=== PATIENT | female | born 1945 | race Two or more races ===

== ENCOUNTER 2024-06-26 10:39 | Inpatient (IN) | payer MEDICARE, MEDICAID, SELFPAY ==
[2024-06-26] VITALS (12 sets, daily range): BP systolic 111–179; BP diastolic 60–91; PULSE 55–167; RESP 14–96; TEMP 36.4–37.1; O2SAT 94–97; BMI 24.3
--- NOTE | 2024-06-26 11:24 | EKG_ITS ---
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
--- NOTE | 2024-06-26 11:25 | PD.EDRME ---
Rapid Medical Screening Exam RME Arrival date/time: 06/26/24 10:39 79-year-old female presents emergency department complaining of chest pain and bodyaches. Chief Complaint: Chest Pain Time Seen by Provider: 06/26/24 11:16 Vital signs: Vital Signs Temperature 98.6 F 06/26/24 11:19 Pulse Rate 160 H 06/26/24 11:19 Respiratory Rate 19 06/26/24 11:19 Blood Pressure 150/91 H 06/26/24 11:19 Pulse Oximetry (%) 94 L 06/26/24 11:19 Oxygen Delivery Method Room Air 06/26/24 11:19 Vital signs reviewed by provider: Yes
--- NOTE | 2024-06-26 11:44 | EKG_ITS ---
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
--- NOTE | 2024-06-26 11:48 | PD.EDADULT ---
ED General RME/HPI General Chief complaint: Chest Pain Stated complaint: BODYACHE, CHEST PAIN, ANXIETY Time Seen by Provider: 06/26/24 11:16 Arrival date/time: 06/26/24 10:39 CC: Chest pain/chest pressure HPI onset 11 PM last night. Patient has a history of diabetes hypertension hyperlipidemia. Patient denies fever cough shortness of breath or difficulty breathing. Currently chest pain is a 6 on a 10 scale. 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 RME / HPI RME / HPI narrative: 06/26/24 10:39 79-year-old female presents emergency department complaining of chest pain and bodyaches. Related Data Allergies Allergy/AdvReac Type Severity Reaction Status Date / Time No Known Allergies Allergy Verified 06/26/24 10:45 Past Medical History Social History SMOKING STATUS: Never smoker ED Exam Narrative Physical exam: [General: Petite, not emaciated. Not in any acute distress Head normocephalic HEENT: Within acceptable limits Neck is supple nontender Chest equal chest rise nontender to palpation Respiratory: Clear to auscultation no wheezes crackles or rubs CV: Rate rhythm is irregular, accelerated, no murmurs rubs or clicks Abdomen is soft nontender no masses positive bowel sounds all 4 quadrants Back: No CVA tenderness no spinous process tenderness from cervical spine thoracic and lumbar spine Skin: Intact no petechiae rash induration ulceration or crepitus Extremities: Moving all extremity against resistance cap refill less than 2 seconds neurosensory intact Neuro: Awake alert oriented x3 Glascow coma 15 no focal deficits] Course Course Course Narrative: Reassessment of this patient 1217 heart rate is down to 99 patient states chest pain is a 1 to a 2 on a 10 scale if she is sitting upright nontoxic-appearing speaking with her son at bedside. Quality Measures none Orders Category Date Time Status EKG (ED ONLY) *Do not use* NOW Care 06/26/24 11:24 Completed EKG (ED ONLY) *Do not use* NOW Care 06/26/24 11:44 Completed EKG (ED ONLY) *Do not use* NOW Care 06/26/24 11:59 Completed EKG (ED ONLY) *Do not use* NOW Care 06/26/24 13:33 Completed EKG (ED Only) Stat Exams 06/26/24 11:24 Draft EKG (ED Only) Stat Exams 12/29/24 11:44 Draft EKG (ED Only) Stat Exams 06/26/24 11:59 Ordered EKG (ED Only) Stat Exams 06/26/24 13:33 Ordered XR chest 1V portable Stat Exams 06/26/24 12:02 Completed B-Type Natriuretic Peptide Stat Lab 06/26/24 11:49 Completed CBC Stat Lab 06/26/24 11:49 Completed Comprehensive Metabolic Panel Stat Lab 06/26/24 11:49 Completed Magnesium Stat Lab 06/26/24 11:49 Completed Partial Thromboplastin Time Stat Lab 06/26/24 11:49 Completed Prothrombin Time with INR Stat Lab 06/26/24 11:49 Completed Troponin I Stat Lab 06/26/24 11:49 Completed Troponin I Stat Lab 06/26/24 14:42 Ordered Troponin I Stat Lab 06/26/24 14:44 Ordered Urinalysis Stat Lab 06/26/24 11:24 Ordered Dextrose 5%-Water [D5w] 100 ml Med 06/26/24 13:04 Discontinued Diltiazem Inj [Cardizem Inj] 125 mg IV 5 mg/hr Diltiazem Inj [Cardizem Inj] Med 06/26/24 11:47 Discontinued 20 mg IV X1 ONE Sodium Chloride 0.9% 1000 ml [Ns] 1,000 ml Med 06/26/24 11:49 Discontinued IV 999 mls/hr Vital Signs Vital signs: Vital Signs Temperature 98.6 F 06/26/24 11:19 Pulse Rate 160 H 06/26/24 11:19 Respiratory Rate 19 06/26/24 11:19 Blood Pressure 150/91 H 06/26/24 11:19 Pulse Oximetry (%) 94 L 06/26/24 11:19 Oxygen Delivery Method Room Air 06/26/24 11:19 [facility] Patient data External records reviewed:: [facility] previous records Clinical information provided by:: patient Social determinants that could affect healthcare access:: none Patient has the following chronic illnesses:: Diabetes hypertension hyperlipidemia How is presenting disease/condition affected by chronic disease/condition?: uneffected by Evaluation data The following diagnostics were reviewed and interpreted by me:: lab results, radiology exam(s) and EKG tracing(s) Lab and/or radiology exams considered but not ordered:: EKG performed at 1132 shows a ventricular to 155 QRS of 85 QTc of 395 A-fib versus a flutter Repeat EKG at 1145 shows ventricular to 129 QRS of 79 QTc of 379 A-fib versus a flutter. With a pause. Repeat EKG after diltiazem at 1204 shows a ventricular rate of 65 QRS of 96 QTc of 418 A-fib with controlled rate. Repeat EKG performed at 1342 shows ventricular rate of 5 9 LA interval 161 QRS 81 QTc 445 sinus bradycardia. CBC shows no acute leukocytosis anemia thrombocytopenia CMP shows mildly elevated glucose level no other significant electrolyte imbalances renal impairment transaminitis or T. bili elevation initial troponin is negative BNP is negative Urine is negative Interpretation Summary: Patient's case discussed at length with Dr. Eyad Castillo for Dr. Varghese attending, Dr. 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 Crain who agrees to consult on the patient for cardiology patient will be admitted. Medications Medications considered but not ordered:: None Medication administrations:: Medication Administration History Discontinued Medications Diltiazem HCl (Diltiazem Inj 5 Mg/Ml Vial 5 Ml) 20 mg IV X1 ONE Stop: 06/26/24 11:48 Last Admin: 06/26/24 11:51 Dose: 20 mg Documented By: CARLEEN Sodium Chloride (Ns) 1,000 mls @ 999 mls/hr IV .Q1H1M ONE Stop: 06/26/24 12:49 Last Infusion: 06/26/24 14:03 Dose: Infused Documented By: Admin: 06/26/24 11:52 Dose: 999 mls/hr Documented By: CARLEEN Diltiazem HCl 125 mg/ Dextrose 125 mls @ 5 mls/hr IV .Q24H [facility]; Protocol Stop: 07/26/24 13:03 Last Admin: 06/26/24 14:31 Dose: Not Given Documented By: CARLEEN Non-Admin Reason: Discontinued None Consultations Consultation(s) initiated? (list below): Yes Consultation #1 (Physician, Specialty, Details): Ready Time: 14:57 Diagnosis Differential Diagnosis ED Complaint MDM: A-fib RVR a flutter ACS IA Most likely diagnosis given after review of the tests above:: A-fib with RVR Admission Indicated Admission indicated?: indicated Explain why admission is indicated or not indicated:: Quires further medical management Admission Request Was there a request for admission?: No Disposition Plan Disposition Plan: Admit Medical Decision Making Differential Diagnosis Differential Diagnosis: A-fib RVR a flutter ACS IA Lab Data 06/26/24 11:49 06/26/24 11:49 Labs: Lab Results 06/26/24 Range/Units 11:49 WBC 10.1 (3.6-11.0) Thou/mm3 RBC 6.35 H (4.00-5.20) Miln/mm3 Hgb 15.2 (12.0-16.0) g/dL Hct 46.7 H (36.0-46.0) % MCV 74 L (80-100) fL MCH 23.9 L (25.0-35.0) pg MCHC 32.5 (31.0-37.0) g/dl RDW Std Deviation 39.9 (36.4-46.3) fL Plt Count 354 (140-440) Thou/mm3 Neut % (Auto) 64 (37-80) % Lymph % (Auto) 26 (10-50) % Yancey % (Auto) 8 (0-12) % Eos % (Auto) 1 (0-10) % Baso % (Auto) 1 (0-2.5) % Neut # (Auto) 6.5 (1.8-7.7) Thou/mm3 Lymph # (Auto) 2.7 (1.0-4.8) Thou/mm3 [place]y # (Auto) 0.8 (0.0-0.8) Thou/mm3 Eos # (Auto) 0.1 (0.0-0.5) Thou/mm3 Baso # (Auto) 0.1 (0.0-0.2) Thou/mm3 Immature Gran # (Auto) 0.04 H (0.00-0.00) Thou/mm3 Absolute Nucleated RBC 0.00 (0.00-0.00) Thou/mm3 Immature Gran % 0 (0-0) % Nucleated RBC % 0 (0) /100 WBC PT 10.9 (9.0-12.2) Seconds INR 1.0 (0.9-1.3) APTT 26.0 (22.0-36.0) Seconds Sodium 136 (136-145) mMol/L Potassium 3.4 (3.4-5.1) mMol/L Chloride 99 (98-107) mMol/L Carbon Dioxide 25.2 (20.0-31.0) mMol/L Anion Gap 12 (7-16) BUN 14 (9-23) mg/dL Creatinine 0.7 (0.6-1.3) mg/dL Estim Creat Clear Calc Not Performed. eGFR > 60 (60 - ) See Note BUN/Creatinine Ratio 20 (12-20) Ratio Glucose 209 H (74-106) mg/dL Calculated Osmolality 278 (275-295) Calcium 10.0 (8.3-10.6) mg/dL Corrected Calcium 10.0 (8.5-10.1) mg/dL Magnesium 2.1 (1.6-2.6) mg/dL Total Bilirubin 1.2 (0.3-1.2) mg/dL AST 21 (0-34) U/L ALT 16 (10-49) U/L Alkaline Phosphatase 129 H (46-116) U/L Troponin I < 0.020 (0.0-0.045) ng/mL B-Natriuretic Peptide 155 H (0-100) pg/mL Total Protein 8.5 H (5.7-8.2) gm/dL Albumin 5.2 H (3.4-4.8) gm/dL Globulin 3.3 (2.3-3.5) gm/dL Albumin/Globulin Ratio 1.6 (1.2-2.2) Discharge Plan Plan Patient Disposition: Other Care w/in Hosp ([facility]) Patient condition on transfer: Stable Prescriptions/Referrals Referrals: Uriel Iqbal [Primary Care Provider] - In 1 week Problem List Clinical Impression: Chest pain, Atrial fibrillation with RVR Patient/Caregiver Discharge Instructions Print Language: Sami Stand Alone Forms: M[facility]enna Award Info., Patient Portal Info Letter ALEXANDER/TANISHA Supervising Physician ALEXANDER/TANISHA Supervising Physician: Diego Rosado ENP
[2024-06-26] MEDS: DILTIAZEM INJ 5 MG/ML VIAL 5 ML 20 MG IV (11:51)
[2024-06-26] MEDS: SODIUM CHLORIDE 0.9% 1000 ML 1,000 ML 999 ML IV (11:52)
--- NOTE | 2024-06-26 12:02 | XR_ITS ---
Examination: AP chest single view Technique: AP upright portable chest single view Exam date and time: June 26, 2024 1206 hrs. Comparison October 16, 2008 Indications: Shortness of breath today. Findings: Mild prominence of ventricle No pneumonia or pulmonary edema Moderate osteopenia Impression: No pneumonia or pulmonary edema
[2024-06-26 12:22] LABS: Prothrombin Time 10.9 Seconds (9.0-12.2)
[2024-06-26 12:24] LABS: Basophils # (Auto) 0.1 Thou/mm3 (0.0-0.2); Basophils % (Auto) 1 % (0-2.5); Eosinophils # (Auto) 0.1 Thou/mm3 (0.0-0.5); Eosinophils % (Auto) 1 % (0-10); Hematocrit 46.7 % (36.0-46.0); Hemoglobin 15.2 g/dL (12.0-16.0); Immature Granulocytes % (Auto) 0 % (0-0); Immature Granulocytes Auto 0.04 Thou/mm3 (0.00-0.00); Lymphocytes # (Auto) 2.7 Thou/mm3 (1.0-4.8); Lymphocytes % (Auto) 26 % (10-50); Mean Corpuscular HGB Conc 32.5 g/dl (31.0-37.0); Mean Corpuscular Hemoglobin 23.9 pg (25.0-35.0); Mean Corpuscular Volume 74 fL (80-100); Monocytes # (Auto) 0.8 Thou/mm3 (0.0-0.8); Monocytes % (Auto) 8 % (0-12); Neutrophils # (Auto) 6.5 Thou/mm3 (1.8-7.7); Neutrophils % (Auto) 64 % (37-80); Nucleated Red Blood Cell % 0 /100 WBC (0); Platelet Count 354 Thou/mm3 (140-440); RDW Standard Deviation 39.9 fL (36.4-46.3); Red Blood Count 6.35 Miln/mm3 (4.00-5.20); White Blood Count 10.1 Thou/mm3 (3.6-11.0)
[2024-06-26 12:26] LABS: Alanine Aminotransferase 16 U/L (10-49); Albumin, Serum 5.2 gm/dL (3.4-4.8); Albumin/Globulin Ratio 1.6 (1.2-2.2); Alkaline Phosphatase 129 U/L (46-116); Anion Gap 12 (7-16); Aspartate Amino Transferase 21 U/L (0-34); BUN/Creatinine Ratio 20 Ratio (12-20); Bilirubin,Total 1.2 mg/dL (0.3-1.2); Blood Urea Nitrogen 14 mg/dL (9-23); Carbon Dioxide 25.2 mMol/L (20.0-31.0); Chloride 99 mMol/L (98-107); Creatinine (Component) 0.7 mg/dL (0.6-1.3); Globulin 3.3 gm/dL (2.3-3.5); Glucose 209 mg/dL (74-106); Magnesium 2.1 mg/dL (1.6-2.6); Osmolality,Calculated 278 (275-295); Potassium 3.4 mMol/L (3.4-5.1); Sodium 136 mMol/L (136-145); Total Protein 8.5 gm/dL (5.7-8.2); Troponin I < 0.020 ng/mL (0.0-0.045); eGFR > 60 See Note
[2024-06-26 12:59] LABS: B-Type Natriuretic Peptide 155 pg/mL (0-100)
[2024-06-26 15:08] LABS: Collection Type, Urine Clean Catch
--- NOTE | 2024-06-26 15:12 | ECHO_ITS ---
Transthoracic Echo Report Ht (in): 60 Wt (lb): 155 Exam Location: Portable Status: Emergency Long Winder Tender: Zoey Royal Indications: Procedure Performed: BP: 153 / 74 HR: 58 Rhythm: Bradycardia Technical Quality: Fair MEASUREMENTS (Male / Female) Normal Values 2D ECHO LV Diastolic Diameter PLAX 4.8 cm 4.2 - 5.9 / 3.9 - 5.3 cm LV Systolic Diameter PLAX 3.1 cm IVS Diastolic Thickness 1.0 cm 0.6 - 1.0 / 0.6 - 0.9 cm LVPW Diastolic Thickness 0.9 cm 0.6 - 1.0 / 0.6 - 0.9 cm LV Relative Wall Thickness 0.4 LVOT Diameter 1.7 cm LA Volume Index 36.4 cm?/m? 16 - 28 cm?/m? Ascending Aorta Diameter 3.3 cm M-MODE Aortic Root Diameter MM 2.7 cm LA Systolic Diameter MM 3.6 cm LA Ao Ratio MM 1.3 AV Cusp Separation MM 1.9 cm DOPPLER AV Peak Velocity 177.0 cm/s AV Peak Gradient 12.5 mmHg AV Mean Gradient 7.0 mmHg AV Velocity Time Integral 41.2 cm AI Peak Velocity 478.0 cm/s AI Peak Gradient 91.4 mmHg AI Pressure Half Time 502.5 ms LVOT Peak Velocity 104.0 cm/s LVOT Peak Gradient 4.3 mmHg LVOT Velocity Time Integral 25.1 cm LVOT Cardiac Index 1885.7 cm?/min?m? AV Area Cont Eq vti 1.4 cm? AV Area Cont Eq pk 1.3 cm? MV Peak Velocity 122.0 cm/s MV Peak Gradient 6.0 mmHg MV Mean Velocity 56.6 cm/s MV Mean Gradient 2.0 mmHg MV Area PHT 2.4 cm? Mitral E Point Velocity 82.0 cm/s Mitral A Point Velocity 111.0 cm/s Mitral E to A Ratio 0.7 LV E' Lateral Velocity 5.1 cm/s Mitral E to LV E' Lateral Ratio 16.0 LV E' Septal Velocity 3.5 cm/s Mitral E to LV E' Septal Ratio 23.6 TR Peak Velocity 217.7 cm/s TR Peak Gradient 19.0 mmHg FINDINGS Left Ventricle Normal left ventricular size, wall thickness, systolic function with no obvious regional wall motion abnormalities. The ejection fraction is visually estimated at 60-65%. Right Ventricle The right ventricle is normal in size and systolic function. The estimated right ventricular systoli c pressure, 32mmHg. RAP 5. Left Atrium The left atrium is mildly dilated. Right Atrium The right atrium is normal by two-dimensional imaging, color flow and Doppler imaging with no struct ural abnormalities, no thrombus formation present. Atrial Septum The interatrial septum appears normal with no evidence of a shunt. Aorta The aorta is normal by two-dimensional, color flow and Doppler interrogation. Mitral Valve The mitral valve is mildly MAC. There is mild mitral valve regurgitation. Aortic Valve The aortic valve is trileaflet. Mild sclerosis without stenosis. There is moderate aortic valve reg urgitation. Tricuspid Valve The tricuspid valve is normal by two-dimensional, color flow and Doppler interrogation. There is mil d tricuspid valve regurgitation. Pulmonic Valve There is trace pulmonic valve regurgitation. Vessels The pulmonary artery appears normal. The inferior vena cava pulmonary and hepatic veins appear alanna l. Pericardium The pericardium is normal by two-dimensional imaging. There is no significant pericardial effusion. CONCLUSIONS Normal LV size and function. Estimated EF 60-65% Normal RV size and function. Mild LA dilatation Mild MAC with Mild MR Mild TR normal PA pressure Mild AV sclerosis without stenosis with mild aortic regurgitation. Lauren Meyers (Electronically Signed) Final Date: 28 June 2024 14:09
[2024-06-26] MEDS: PANTOPRAZOLE INJ 40 MG VIAL IVP (15:20)
[2024-06-26] MEDS: INSULIN LISPRO (AdmeLOG) 1 UNIT/0.01 ML UNIT SC ×2 (15:20→21:20)
[2024-06-26 15:27] LABS: Bacteria,Urine Rare; Bilirubin,Urine Negative (Negative); Blood,Urine Negative (Negative); Clarity,Urine Clear (Clear/Hazy); Glucose, Urine Negative (Negative); Ketones,Urine Negative (Negative); Leukocyte Esterase,Urine Negative (Negative); Nitrite,Urine Negative (Negative); Protein,Urine Negative (Neg - Trace); RBC,Urine 1 /hpf (0-3); Specific Gravity,Urine 1.008 (1.001-1.035); Squamous Epithelial Cell,Urine < 1 /hpf (0-5); Urobilinogen,Urine Negative mg/dL (0.0-1.0); WBC,Urine 1 /hpf (0-5)
[2024-06-26 15:32] LABS: Color,Urine Lt-Yellow (Lt Yel-Yel)
--- NOTE | 2024-06-26 15:46 | PD.RESHP ---
Documentation for date of: 06/26/24 [facility] History of Present Illness History of present illness: CC: felt heart jumping Patient is 71 years old female with a past medical history of hypertension, hyperlipidemia (?), diabetes mellitus type 2 insulin-dependent on glargine 15 units at bedtime who presented to the emergency with chest pain over the left side that radiates up her jaw and down to the diaphragm. Patient stated symptoms began several months ago but was prompted to come into the emergency room today as she felt her heart was racing and jumps out of her chest. Along with her palpitation patient also stated she gets headaches but denied any sensitivity to light or sound. Headache then radiates to the occipital lobe. Patient denied any history of GERD. Patient denied any previous history of MIs. Patient states she is compliant with her medication that she takes from [place]. Stated her blood sugar is typically near 200s in the evening but does not check her fasting glucose or glucose after meals. Patient denied chest pain with inspiration. Patient denied muscle skeletal chest pain. Symptoms worsened today but have been ongoing for the past several months, patient denied history of arrhythmias. Patient also complaining of constipation for the past 3 days denied hematemesis or melena. Patient is concerned for malignancy as she is small cyst or benign tumor removed from her gumline but was told it was benign. Dentures recently added. ER course: Vitals: BP 150/91, heart rate 160, RR 19, SpO2 94% room air CMP (06/26/2024) potassium 3.4, BUN 14 creatinine 0.7 WC 10.1 Glucose 209 Troponins <0.02 BNP 155 UA NEGATIVE Cxr (06/26/2024) Negative EKG Atrial Flutter-->Atrial Fibrillation--> after Dilt push-->Atrial Flutter with Pause-->Sinus Elia Medicaiton: Diltizem 20 mg IV X1, NS 1 liter bolus PMH: -Diabetes mellitus type 2 insulin-dependent -Hypertension -Possible hyperlipidemia, no statin on board -Arthritis versus osteoporosis Past Surgical History: -Appendectomy -Cholecystectomy -Hysterectomy -Umbilical hernia repair Home Medication: Glargine 15 units at bedtime Metformin 500 mg a.m. and half a tablet at bedtime Aspirin 81 mg daily Irbesartan 150 mg daily paracetamol 650 mg daily as needed all medication is from [place] Social History: None Allergies: None Code Status: Full Code Review of Systems Review of Systems Narrative Review of Systems: General appearance: YES weight change form 78 kg to 65 kg over several weeks, NO fatigue, NO weakness, NO fever, NO chills, NO night sweats, No cough, Headaches Skin: NO rash, NO itching, NO sores, NO moles HEENT: NO Trauma, NO nausea, NO vomiting, NO visual changes, Yes blurry vision-baseline history of cataracts., NO double vision, NO tinnitus, NO vertigo, NO ear discharge, NO rhinorrhea, NO stuffiness, NO sneezing, NO allergy, NO epistaxis. NO Hoarseness, NO sore throat, NO swollen neck. Cardiac: YES Palpitations, NO dyspnea on exertion, NO orthopnea, NO paroxysmal nocturnal dyspnea, NO edema Respiratory: NO Shortness of Breath, NO Wheezing, NO Cough, NO Sputum, NO hemoptysis GI:NO appetite, NO nausea, NO vomiting, NO dysphagia, NO changes in bowel frequency, NO stool color, NO diarrhea, Yes constipation for several days, NO hemetemesis, NO hemorrhoids, NO melena, NO hematechezia, NO abdominal pain, NO jaundice Renal: NO frequency, NO hesitancy, NO urgency, NO hematuria, NO nocturia, NO incontinence MSK: NO muscle weakness, NO gout, Yes arthritis, Possible Osteoporosis, NO muscle stiffness Neuro: YES headaches, NO tremors, NO weakness, NO paralysis, NO seizures, NO loss of consciousness, NO numbness. Hem: NO anemia, NO easy bruising/bleeding, NO petechiae, NO purpura Endo: NO heat/cold intolerance, NO excessive sweating, NO polyuria, NO polydipsia, NO polyphagia, NO thyroid problems, YES diabetes Pysch: NO mood, NO anxiety, NO depression Exam Vital Signs Temp Pulse Resp BP Pulse Ox O2 Del Method 98.6 F 59 L 14 127/73 97 Room Air 06/26/24 15:00 06/26/24 15:29 06/26/24 15:29 06/26/24 15:19 06/26/24 15:00 06/26/24 15:00 Narrative Exam General Appearance: Alert & Oriented X3, well-nourished female who is lying in bed in no acute distress HEENT: Skull symmetrical and atraumatic. Conjunctivae pin and moist. Pupils equal, round, reactive to light and accommodation (PERRL). External ear without lesion or discharge. Straight, nares patient, mucosa pink, no discharge. No thyroid nodule appreciated. No cervical lymphadenopathy. Cardio: Normal Rate and Rhythm with S1 and S2 heart sounds. No murmurs or extra heart sounds auscultated. No bruits on carotid auscultation. No peripheral edema or cyanosis. No JVD Lungs: Symmetric with good expansion. Chest and back non-tender. Breath sounds vesicular without crackles, wheezing or rhonchi Abdomen: Non-tender, Non-distended, Normal Reactive Bowel Sounds Neuro: Alert, cooperative, oriented to person, place, and time. Speech clear. CN grossly intact. Upper motor strength 5/5 and Lower motor strength 5/5. Sensation intact. Results: Labs 06/27/24 05:17 06/27/24 05:17 Labs: Short CBC 06/26/24 Range/Units 11:49 WBC 10.1 (3.6-11.0) Thou/mm3 Hgb 15.2 (12.0-16.0) g/dL Hct 46.7 H (36.0-46.0) % Plt Count 354 (140-440) Thou/mm3 BMP 06/26/24 11:49 Sodium 136 Potassium 3.4 Chloride 99 Carbon Dioxide 25.2 BUN 14 Creatinine 0.7 Glucose 209 H Calcium 10.0 Cardiac Enzymes 06/26/24 Range/Units 11:49 Troponin I < 0.020 (0.0-0.045) ng/mL Liver Function 06/26/24 Range/Units 11:49 Total Bilirubin 1.2 (0.3-1.2) mg/dL AST 21 (0-34) U/L ALT 16 (10-49) U/L Alkaline Phosphatase 129 H (46-116) U/L Albumin 5.2 H (3.4-4.8) gm/dL Urine 06/26/24 Range/Units 15:00 Urine Color Lt-Yellow (Lt Yel-Yel) Urine Clarity Clear (Clear/Hazy) Urine pH 7.0 (5.0-7.0) Ur Specific [place] 1.008 (1.001-1.035) Urine Protein Negative (Neg - Trace) Urine Glucose (UA) Negative (Negative) Quality Measures Quality Measures none Advance care planning discussed with:: patient and child Medications Home Medications and Allergies Home Medications ?Medication ?Instructions ?Recorded ?Confirmed ?Type insulin glargine 100 unit/mL 15 unit subcut QPM 06/26/24 06/26/24 History subcutaneous solution (Lantus U-100 Insulin) Allergies Allergy/AdvReac Type Severity Reaction Status Date / Time No Known Allergies Allergy Verified 06/26/24 10:45 Visit Medications Acetaminophen (Acetaminophen 325 Mg Tablet) 650 mg PO Q6H PRN PRN Reason: Mild Pain 1-3 or Fever > 100.4 Stop: 07/26/24 15:03 Hydrocodone Bitart/Acetaminophen (Hydrocodone/Apap 5/325 Tablet) 1 tab PO Q4HR PRN PRN Reason: PAIN SCALE 4-6 (Moderate Stop: 07/01/24 15:03 Apixaban (Apixaban 2.5 Mg Tablet) 5 mg PO BID [facility] Stop: 07/26/24 20:59 Dextrose (Dextrose 50%-Water Inj 50 Ml Syringe) 25 ml IV Q15MIN PRN PRN Reason: BG 50-70 responsive npo pt Stop: 07/26/24 15:07 Dextrose (Dextrose 50%-Water Inj 50 Ml Syringe) 50 ml IV Q15MIN PRN PRN Reason: BG <50 OR BG <70 & pt unresponsive Stop: 07/26/24 15:07 Glucagon (Glucagon Inj 1 Mg Vial) 1 mg IM Q15MIN PRN PRN Reason: BG <70, and no IV access Heparin Sodium (Porcine) (Heparin Sod Inj 5000 Unit/Ml Vial) 5,000 unit SC Q12HR [facility] Stop: 07/10/24 20:59 Insulin Glargine (Insulin Glargine (Lantus) 5 Unit/0.05 Ml (Per 5 Units)) 15 unit SC HS [facility] Stop: 07/26/24 20:59 Insulin Human Lispro (Insulin Lispro (Admelog) 1 Unit/0.01 Ml Unit) 0 unit SC ACHS [facility]; Protocol Stop: 07/26/24 16:59 Last Admin: 06/26/24 15:20 Dose: 2 unit Losartan Potassium (Losartan Potassium 25 Mg Tablet) 25 mg PO QDAY [facility] Stop: 07/26/24 15:14 Last Admin: 06/26/24 15:19 Dose: Not Given Pantoprazole Sodium (Pantoprazole Inj 40 Mg Vial) 40 mg IVP QDAY [facility] Stop: 07/26/24 15:14 Last Admin: 06/26/24 15:20 Dose: 40 mg Sennosides (Senna Tablet) 1 tab PO QDAY PRN; Protocol PRN Reason: constipation Stop: 07/26/24 15:03 Discontinued Medications Diltiazem HCl (Diltiazem Inj 5 Mg/Ml Vial 5 Ml) 20 mg IV X1 ONE Stop: 06/26/24 11:48 Last Admin: 06/26/24 11:51 Dose: 20 mg Sodium Chloride (Ns) 1,000 mls @ 999 mls/hr IV .Q1H1M ONE Stop: 06/26/24 12:49 Last Infusion: 06/26/24 14:03 Dose: Infused Diltiazem HCl 125 mg/ Dextrose 125 mls @ 5 mls/hr IV .Q24H [facility]; Protocol Stop: 07/26/24 13:03 Last Admin: 06/26/24 14:31 Dose: Not Given Assessment & Plan Plan Patient is 71 years old female with a past medical history of hypertension, hyperlipidemia (?), diabetes mellitus type 2 insulin-dependent on glargine 15 units who was amditted for new onset of atrial flutter-->atrial fibrillation. #Paroxysmal Atrial Fibrillation rate controlled #Atrial Fibrillation w/ rvr, resolved #Chest pain Etiology: Likely secondary to pharmacy pharmacy as patient does not have a PCP and all her medication is managed by her physician in [place] that patient sees infrequently and all her medications are brought to her from [place]. Please follow-up with lipid panel as patient may have hyperlipidemia. DDx: Electrical imbalance less likely as electrolytes near normal limits versus PE less likely wells criteria 0 versus electrical foci vs Giant Cell Arteritis vs Diagnostic: EKG in ER read Atrial Flutter, no p waves noted, regular and HR 155-->EKG then changed to Atrial Fibrillation w/ no p waves noted and irregular irregular w/ a sinus pause-->now sinus elia HR 60 (post dilt 20 mg IVP X) Troponin <0.02 Cxr: no pneumonia noted [id number] score 5 Plan -Eliquis 5 PO BID -Lipid Panel -TSH -A1c -Pending Mg -Pending echo -Mg and Phosphorus w/ am draws -Keep K>4 and Mg >2 -No beta dejuan recommended at this time, cardiology recommendations -Cardiology consulted, Dr. Crain, appreciate recommendations #Diabetes Mellitus Type 2 Insulin dependent Patient has a past medical history of diabetes mellitus type 2, insulin dependent. Patient gets all her medication from [place] and possibly has a primary care physician there, denied following up with a [employer] support. Denied primary care provider in [place]. No previous A1c on record for patient. Patient stated her blood glucose at night near 200s, does not check morning glucose. Diagnostics: -Glucose 209 Plan -Hospital goal 140-180 -Glargine 15 HS, restart home dose -Hold home Metformin 500 mg AM & 250 mg Evening -Slding Scale -Fasting Blood Glucose AM -A1c #Hypertension: Patient on admission had a systolic blood pressure of 150/91, during bedside exam systolic blood pressure of 140s after Diltiazem 20 mg X1. At home patient takes Irbesartan 150 mg. Plan -Hold Irbesartan 150 mg -Start Losartan 25 mg Qday -Please continue to monitor blood pressure, hold systolic BP <120 Health Maintenance: Disp: Pt is currently admitted to floors for further management of atril fibrillation, awaiting echo FEN: Low Carb Consisten, Cardio DVT: on subQ heparin Q12 HR Code: Full Code - The patient's plan was discussed with attending Dr. Varghese and senior residents Dr. Bassem Pruitt MD PGY1 Internal Medicine Attending Provider Attestation/Addendum I, Archana Varghese DO, attest that I was physically present for the mcgrath portions of the service and evaluated the patient with the resident and I reviewed and discussed the case with the resident and agree with the resident's findings and plans of care as documented above Patient is a 71-year-old female with past medical history of hypertension, hypercholesterolemia, insulin-dependent diabetes mellitus who presented to the ED with chest discomfort and palpitations. She also complains of pain radiating to her jaw. She also reports having previous history of a mouth abscess. Patient states that she has been having occasional headaches when she has palpitations and lightheadedness. Upon presentation, patient was found to have a heart rate of 160s. Patient received Cardizem in the ED after which patient was found to have a sinus pause and converted to sinus bradycardia in the 60s. Cardiology consulted from ED and recommended Eliquis. Will admit patient to telemetry for further cardiac monitoring and workup of new onset A-fib. Will order echocardiogram. Troponin has been negative x 2 in ED.
[2024-06-26 15:59] LABS: Troponin I 0.029 ng/mL (0.0-0.045)
[2024-06-26] MEDS: POTASSIUM CHLORIDE 10% 20 MEQ/15 ML UDC 40 MEQ PO (16:04)
--- NOTE | 2024-06-26 17:44 | PC.CC ---
Pt Rosie Fishman is a 79 yr old female, admitted to hospitalist services for Afib. ASW met with pt and her son Neto Lazcano at bedside to complete initial assessment. At time of encounter pt is noted to be alert and oriented to person, place and situation. Pt expressed understanding admission orders. Pt able to confirm demographic information. Pt is from home [address] [place] [address] in [place]. Per pt since her husbands passing last year she has been moving around to her children's homes. Pt states all her children are designated to speak in the event that she is unable to do so. Pts son Wiley Lazcano [phone] is listed as next of kin on pts face sheet. In the home pt reports using a cane to support ambulation. Per pt she is independent with her ADLs, but states she does a lot less now that she is . Per pt she is diabetic and metformin, which she gets from [place]. Pt is not on dialysis. Pt does not require supplemental O2. Pt unable to give name of primary provider. Per pt she was referred to [facility], but states she does not go to the doctor. At time of D/c pt states she will return home, with family providing transport.
--- NOTE | 2024-06-26 20:16 | PC.NURSE ---
REPORT GIVEN TO CASEY GRANADOS AT TELE.
[2024-06-26] MEDS: HEPARIN SOD INJ 5000 UNIT/ML VIAL SC (21:04)
[2024-06-26] MEDS: APIXABAN 2.5 MG TABLET 5 MG PO (21:04)
[2024-06-26] MEDS: INSULIN GLARGINE (Lantus) 5 UNIT/0.05 ML (PER 5 UNITS) 15 UNIT SC (21:20)
[2024-06-27] VITALS (11 sets, daily range): BP systolic 141–204; BP diastolic 65–114; PULSE 53–77; RESP 12–94; TEMP 36.1–36.7; O2SAT 94–98; BMI 20.8
[2024-06-27 05:48] LABS: Basophils # (Auto) 0.1 Thou/mm3 (0.0-0.2); Basophils % (Auto) 1 % (0-2.5); Eosinophils # (Auto) 0.1 Thou/mm3 (0.0-0.5); Eosinophils % (Auto) 2 % (0-10); Hematocrit 39.7 % (36.0-46.0); Hemoglobin 12.7 g/dL (12.0-16.0); Immature Granulocytes % (Auto) 0 % (0-0); Immature Granulocytes Auto 0.02 Thou/mm3 (0.00-0.00); Lymphocytes # (Auto) 2.6 Thou/mm3 (1.0-4.8); Lymphocytes % (Auto) 34 % (10-50); Mean Corpuscular Hemoglobin 24.1 pg (25.0-35.0); Mean Corpuscular Volume 75 fL (80-100); Monocytes # (Auto) 0.9 Thou/mm3 (0.0-0.8); Monocytes % (Auto) 11 % (0-12); Neutrophils % (Auto) 52 % (37-80); Nucleated Red Blood Cell % 0 /100 WBC (0); Platelet Count 290 Thou/mm3 (140-440); RDW Standard Deviation 40.9 fL (36.4-46.3); Red Blood Count 5.28 Miln/mm3 (4.00-5.20); White Blood Count 7.6 Thou/mm3 (3.6-11.0)
[2024-06-27 06:15] LABS: Anion Gap 9 (7-16); BUN/Creatinine Ratio 22 Ratio (12-20); Blood Urea Nitrogen 13 mg/dL (9-23); Carbon Dioxide 23.7 mMol/L (20.0-31.0); Cardiac Risk Estimate 3.5 RATIO (3.7-5.6); Chloride 108 mMol/L (98-107); Cholesterol 201 mg/dL (132-200); Creatinine (Component) 0.6 mg/dL (0.6-1.3); Estimated Creatinine Clearance 73.6 mL/min (>60); Glucose 88 mg/dL (74-106); HDL Cholesterol 58 mg/dL (40-60); LDL Cholesterol,Calculated 123 mg/dL (0-130); Magnesium 2.1 mg/dL (1.6-2.6); Osmolality,Calculated 280 (275-295); Phosphorous 4.8 mg/dL (2.4-5.1); Potassium 3.8 mMol/L (3.4-5.1); Sodium 141 mMol/L (136-145); Triglycerides 99 mg/dL (30-150); eGFR > 60 See Note
[2024-06-27 06:42] LABS: Glucose Estimated Average 186 mg/dL (80-131); Hemoglobin A1C 8.1 % Hgb (4.8-6.0)
[2024-06-27] MEDS: ACETAMINOPHEN 325 MG TABLET 650 MG PO (07:14)
[2024-06-27] MEDS: HEPARIN SOD INJ 5000 UNIT/ML VIAL SC (08:49)
--- NOTE | 2024-06-27 08:49 | PC.SS ---
Update: Patient is pending Echo.
[2024-06-27] MEDS: APIXABAN 2.5 MG TABLET 5 MG PO ×2 (08:50→21:51)
[2024-06-27] MEDS: POTASSIUM CHLORIDE 10% 20 MEQ/15 ML UDC 40 MEQ PO (08:50)
[2024-06-27] MEDS: LOSARTAN POTASSIUM 25 MG TABLET PO (08:50)
[2024-06-27] MEDS: PANTOPRAZOLE INJ 40 MG VIAL IVP (08:51)
--- NOTE | 2024-06-27 09:36 | EKG_ITS ---
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
--- NOTE | 2024-06-27 09:40 | ESCONSULT_ITS ---
RE: PIOTR ROY : 1945 DATE OF CONSULTATION: 06/26/2024 CONSULTING PHYSICIAN: Hospitalist. REASON FOR CONSULTATION: Evaluation of atrial fibrillation, new onset. CHIEF COMPLAINT: Heart palpitations and chest pain. HISTORY OF PRESENT ILLNESS: The patient is a 79-year-old female with past medical history of hypertension, hypercholesterolemia, diabetes mellitus type 2 on insulin, presented to the hospital with episode of chest pain and palpitations. She has chest pain, left-sided, which is radiating to her jaw and down to the abdomen. The patient also states these symptoms began several months ago but came to the emergency room because of severe palpitations and rapid heart rate. The patient also has some headaches. She apparently takes blood pressure medications and diabetes medications from [place]. In the emergency room, the patient was in atrial fibrillation, rapid heart rate and initially thought of atrial fibrillation, but after diltiazem went to atrial flutter, converted to sinus rhythm. Diltiazem IV dose 20 mg was given and the patient's blood pressure went down when 1 liter of normal saline was given. The patient is comfortable when I examined. She is back in normal sinus rhythm. She does not complain of any chest pain, anymore shortness of breath. Chest pain completely resolved when her sinus rhythm was restored. HOME MEDICATIONS: From [place] include; 1. Glargine units at bedtime. 2. Metformin 500 mg in the morning, half tablet at bedtime. 3. Aspirin 81 daily. 4. Irbesartan 150 daily. Most of the medication she gets it from the [facility]. PAST MEDICAL HISTORY: Hypertension, hypercholesterolemia, type 2 diabetes mellitus. SOCIAL HISTORY: She is fairly active. She does not smoke or drink alcoholic beverages. She continues to work in the [employer]. FAMILY HISTORY: Noncontributory. REVIEW OF SYSTEMS: CARDIOVASCULAR: As described earlier. GASTROINTESTINAL: No history of nausea or vomiting. GENITOURINARY: No history of frequency or dysuria. PHYSICAL EXAMINATION: GENERAL: Pleasant lady awake, alert, in no acute distress. VITAL SIGNS: Stable. Blood pressure 160/72, pulse rate is 60, respirations 18, temperature normal. HEENT: Head is atraumatic and normocephalic. Eyes normal. ENT normal. NECK: Supple. No JVD. Carotid pulse felt, no bruits. CHEST: Symmetrical. LUNGS: Clear. No rales or rhonchi. HEART: S1 and S2 regular. No gallops or murmurs. ABDOMEN: Soft. EXTREMITIES: No edema. DIAGNOSTIC DATA: EKG, initial EKG showed evidence of atrial flutter, fibrillation with a rate of 150 beats per minute. Subsequently, the patient was in normal sinus rhythm. LABORATORY DATA: Shows CBC is normal. Chemistry panel shows creatinine is normal. negative. IMPRESSION/ASSESSMENT: 1. New-onset atrial flutter, fibrillation, rapid ventricular response, back to sinus rhythm with diltiazem. 2. Chest discomfort possibly due to atrial fibrillation, rapid rate. 3. Hypertension. 4. Diabetes mellitus. 5. Hypercholesterolemia. RECOMMENDATIONS: The patient should be observed overnight and if enzymes are negative, cardiac echo is normal, the patient can be discharged to have further evaluation with a stress test and noninvasive workup for coronary artery disease as an outpatient. Recommend continuing irbesartan for hypertension. The patient also appears to have a CHADS-VASc score of 5, hence recommended anticoagulation with Eliquis because of atrial fibrillation 5 mg twice daily dose. As for as the chest pain appears to be due to AFib with RVR possibly acting like a positive stress test, hence the patient definitely will require workup for coronary artery disease following discharge. I would be glad to see her as an outpatient following discharge. Thanks for referring this patient for cardiovascular evaluation. We will be glad to follow the patient as an outpatient. DT: 08:26:23 TT: 09:22:00 Ref: [id number] - TID: [id number]
[2024-06-27 10:51] LABS: Troponin I < 0.020 ng/mL (0.0-0.045)
--- NOTE | 2024-06-27 11:17 | PD.RESDS ---
Planned Discharge Date 06/27/24 DS: Providers Provider Date of admission: 06/26/24 15:02 Primary care physician: Uriel Robert Admitting Provider: Archana Varghese DO Attending Provider on Admission: Archana Varghese DO Consults: 06/26/24 15:13 Referral Registered Dietitian Routine Comment: 06/26/24 18:00 Consult to Cardiology Routine Comment: Consulting Provider: Aman Crain Instructions: new onset of Atrial fibrillation Attending Provider on DC: Ruddy Palma MD Discharging Provider: Ruddy Palma MD Hospital Course Hospital Course Hospital course: CC: felt heart jumping Patient is 71 years old female with a past medical history of hypertension, hyperlipidemia (?), diabetes mellitus type 2 insulin-dependent on glargine 15 units at bedtime who presented to the emergency with chest pain over the left side that radiates up her jaw and down to the diaphragm. Patient stated symptoms began several months ago but was prompted to come into the emergency room today as she felt her heart was racing and jumps out of her chest. Along with her palpitation patient also stated she gets headaches but denied any sensitivity to light or sound. Headache then radiates to the occipital lobe. Patient denied any history of GERD. Patient denied any previous history of MIs. Patient states she is compliant with her medication that she takes from [place]. Stated her blood sugar is typically near 200s in the evening but does not check her fasting glucose or glucose after meals. Patient denied chest pain with inspiration. Patient denied muscle skeletal chest pain. Symptoms worsened today but have been ongoing for the past several months, patient denied history of arrhythmias. Patient also complaining of constipation for the past 3 days denied hematemesis or melena. Patient is concerned for malignancy as she is small cyst or benign tumor removed from her gumline but was told it was benign. Dentures recently added. ER course: Vitals: BP 150/91, heart rate 160, RR 19, SpO2 94% room air CMP (06/26/2024) potassium 3.4, BUN 14 creatinine 0.7 WC 10.1 Glucose 209 Troponins <0.02 BNP 155 UA NEGATIVE Cxr (06/26/2024) Negative EKG Atrial Flutter-->Atrial Fibrillation--> after Dilt push-->Atrial Flutter with Pause-->Sinus Elia Medicaiton: Diltizem 20 mg IV X1, NS 1 liter bolus PMH: -Diabetes mellitus type 2 insulin-dependent -Hypertension -Possible hyperlipidemia, no statin on board -Arthritis versus osteoporosis Past Surgical History: -Appendectomy -Cholecystectomy -Hysterectomy -Umbilical hernia repair Home Medication: Glargine 15 units at bedtime Metformin 500 mg a.m. and half a tablet at bedtime Aspirin 81 mg daily Irbesartan 150 mg daily paracetamol 650 mg daily as needed all medication is from [place] Social History: None Allergies: None Code Status: Full Code Time Spent with Patient Time attestation: Total time spent providing and/or coordinating discharge services: Exam Vital Signs Temp Pulse Resp BP Pulse Ox O2 Del Method 96.9 F 66 18 168/72 H 95 Room Air 06/27/24 07:45 06/27/24 08:50 06/27/24 07:45 06/27/24 08:50 06/27/24 07:45 06/27/24 07:45 Discharge Plan Problem List Was Problem List Reviewed/Reconciled?: Yes Plan Patient condition on transfer: Stable Prescriptions/Referrals Prescriptions/Med Rec: No Action insulin glargine [Lantus U-100 Insulin] 100 unit/mL Solution 15 unit SUBCUT QPM Referrals: Uriel Iqbal [Primary Care Provider] - Patient/Caregiver Discharge Instructions Education Materials: Your Heart's Electrical System, AFL/Afib, Understanding Atrial Fibrillation, ED Atrial Fibrillation Print Language: Malay
[2024-06-27] MEDS: INSULIN LISPRO (AdmeLOG) 1 UNIT/0.01 ML UNIT SC ×3 (11:36→21:52)
--- NOTE | 2024-06-27 13:53 | ESPR_ITS ---
<Statement entered by Marlin Luevano MD - 06/27/24 15:02> I discussed with and supervised my co-resident involved in the care of this patient. I agree with the assessment and plan as documented above. Patient seen and examined at bedside. Complaining of some jaw pain and chest discomfort, non-reproducible. No palpitations. Will get repeat troponin and EKG. Will follow up on echo and cardiology recommendations. Will continue home medications for blood pressure and diabetes. Marlin Luevano MD PGY-3 Documentation for date of: 06/27/24 Subjective Subjective Interval history: Rosie Fishman is a 79-year-old female with a past medical history of hypertension, hypercholesterolemia, and insulin-dependent type 2 diabetes mellitus who was admitted for new onset atrial fibrillation. No acute overnight events, and patient seen and examined at bedside. Continues to endorse jaw discomfort as well as chest discomfort and palpitations around 5 AM. Per cardiology, patient should remain overnight and if troponin and echo are normal then patient can be discharged for further evaluation with stress test and noninvasive workup for CAD as outpatient. Patient and family expressed concerns regarding trial discomfort and discussed that given history of oral procedure in the past, this may be due to complication or may require further evaluation by ENT as outpatient. Exam Vital Signs Temp Pulse Resp BP Pulse Ox O2 Del Method 96.9 F 68 18 168/72 H 95 Room Air 06/27/24 07:45 06/27/24 12:00 06/27/24 07:45 06/27/24 08:50 06/27/24 07:45 06/27/24 07:45 Narrative Exam General: AOx3, no acute distress, able to speak full sentences HEENT: NC/AT, mucous membranes moist, bilateral sclera anicteric Cardiovascular: regular rate and rhythm, S1/S2 present, no murmurs appreciated Pulmonary: clear to auscultation bilaterally, no rales/rhonchi/wheezes Abdominal: soft, non-tender, non-distended, no rebound/guarding, normal bowel sounds present Musculoskeletal: normal ROM, no peripheral edema Skin: warm and dry, intact, no rashes Neuro: CN II-XII intact, no focal deficits Objective Labs 06/27/24 05:17 06/27/24 05:17 Labs: Laboratory Results - last 24 hr 06/26/24 06/26/24 06/27/24 15:00 15:18 05:17 WBC 7.6 RBC 5.28 H Hgb 12.7 D Hct 39.7 MCV 75 L MCH 24.1 L MCHC 32.0 RDW Std Deviation 40.9 Plt Count 290 D Neut % (Auto) 52 Lymph % (Auto) 34 [place] % (Auto) 11 Eos % (Auto) 2 Baso % (Auto) 1 Neut # (Auto) 4.0 Lymph # (Auto) 2.6 [place] # (Auto) 0.9 H Eos # (Auto) 0.1 Baso # (Auto) 0.1 Immature Gran # (Auto) 0.02 H Absolute Nucleated RBC 0.00 Immature Gran % 0 Nucleated RBC % 0 Sodium 141 Potassium 3.8 Chloride 108 H Carbon Dioxide 23.7 Anion Gap 9 BUN 13 Creatinine 0.6 Estim Creat Clear Calc 73.6 eGFR > 60 BUN/Creatinine Ratio 22 H Glucose [address] Glu mg/dL 186 H Hemoglobin A1c 8.1 H Calculated Osmolality 280 Calcium 9.0 Phosphorus 4.8 Magnesium 2.0 2.1 Troponin I 0.029 < 0.020 Triglycerides 99 Cholesterol 201 H LDL Cholesterol, Calc 123 HDL Cholesterol 58 Cholesterol/HDL Ratio 3.5 L TSH 2.60 Ur Collection Type Clean Catch Urine Color Lt-Yellow Urine Clarity Clear Urine pH 7.0 Ur Specific [place] 1.008 Urine Protein Negative Urine Glucose (UA) Negative Urine Ketones Negative Urine Blood Negative Urine Nitrite Negative Urine Bilirubin Negative Urine Urobilinogen (Auto) Negative Ur Leukocyte Esterase Negative Urine RBC 1 Urine WBC 1 Ur Squamous Epith Cells < 1 Urine Bacteria Rare Quality Measures Quality Measures none Advance care planning discussed with:: patient, spouse and child Assessment & Plan Assessment Current Active Medications: Generic Name Dose Route Start Last Admin Trade Name Freq PRN Reason Stop Dose Admin Acetaminophen 650 mg 06/26/24 15:04 06/27/24 07:14 Acetaminophen 325 Mg Tablet PO 07/26/24 15:03 650 mg Q6H PRN Administration Mild Pain 1-3 or Fever > 100.4 Hydrocodone Bitart/Acetaminophen 1 tab 06/26/24 15:04 Hydrocodone/Apap 5/325 Tablet PO 07/01/24 15:03 Q4HR PRN PAIN SCALE 4-6 (Moderate Apixaban 5 mg 06/26/24 21:00 06/27/24 08:50 Apixaban 2.5 Mg Tablet PO 07/26/24 20:59 5 mg BID SANTINO Administration Dextrose 25 ml 06/26/24 15:08 Dextrose 50%-Water Inj 50 Ml Syringe IV 07/26/24 15:07 Q15MIN PRN BG 50-70 responsive npo pt Dextrose 50 ml 06/26/24 15:08 Dextrose 50%-Water Inj 50 Ml Syringe IV 07/26/24 15:07 Q15MIN PRN BG <50 OR BG <70 & pt unresponsive Glucagon 1 mg 06/26/24 15:08 Glucagon Inj 1 Mg Vial IM Q15MIN PRN BG <70, and no IV access Heparin Sodium (Porcine) 5,000 unit 06/26/24 21:00 06/27/24 08:49 Heparin Sod Inj 5000 Unit/Ml Vial SC 07/10/24 20:59 5,000 unit Q12HR SANTINO Administration Insulin Glargine 15 unit 06/26/24 21:00 06/26/24 21:20 Insulin Glargine (Lantus) 5 Unit/0.05 Ml (Per 5 Units) SC 07/26/24 20:59 15 unit HS SANTINO Administration Insulin Human Lispro 0 unit 06/26/24 17:00 06/27/24 11:36 Insulin Lispro (Admelog) 1 Unit/0.01 Ml Unit SC 07/26/24 16:59 1 unit ACHS SANTINO Administration Protocol Losartan Potassium 25 mg 06/26/24 15:15 06/27/24 08:50 Losartan Potassium 25 Mg Tablet PO 07/26/24 15:14 25 mg QDAY SANTINO Administration Pantoprazole Sodium 40 mg 06/26/24 15:15 06/27/24 08:51 Pantoprazole Inj 40 Mg Vial IVP 07/26/24 15:14 40 mg QDAY SANTINO Administration Sennosides 1 tab 06/26/24 15:04 Senna Tablet PO 07/26/24 15:03 QDAY PRN constipation Protocol Marky Rosie Fishman is a 79-year-old female with a past medical history of hypertension, hypercholesterolemia, and insulin-dependent type 2 diabetes mellitus who was admitted for new onset atrial fibrillation. #Paroxysmal A-fib RVR, resolved Patient does not have a PCP and receives her medications from physician in [place] that she sees infrequently. [id number] score 5. ? Eliquis 5 mg p.o. twice daily ? Keep K > 4 and magnesium > 2 ? Cardiology consulted, appreciate recommendations ? Recommend further evaluation with stress test and noninvasive workup for CAD as outpatient ? Recommend continuing irbesartan for hypertension ? Pending echo #Type 2 diabetes mellitus, insulin-dependent A1c 8.1% on 06/27 ? Glargine 15 units at bedtime ? SSI #Hypertension ? Losartan 25 mg daily Hospital management: Disposition: pending echo read Fluids: not indicated Diet: carb consistent low Lines: peripheral DVT prophylaxis: eliquis 5 mg BID GI prophylaxis: pantoprazole CODE STATUS: full code ----- Plan discussed with attending physician Dr. Varghese and senior resident physician Dr. Bassem Palma MD PGY-1 Internal Medicine Attending Provider Attestation/Addendum I, Archana Varghese, , attest that I was physically present for the mcgrath portions of the service and evaluated the patient with the resident and I reviewed and discussed the case with the resident and agree with the resident's findings and plans of care as documented above Patient seen and eval this a.m. Heart rate remains controlled at this time. She reports having an episode of chest pain this morning that was deep in her bones to her jaw. Troponin was drawn however, was negative. Patient also admitted to having symptoms of anxiety as well. Patient was started on EliquisWith a [id number] of 5. Follow-up with echocardiogram and cardiology recommendations.
--- NOTE | 2024-06-27 14:23 | PC.SS ---
Rounding Note: Echo pending. Possible d/c later today.
[2024-06-27] MEDS: hydrALAZINE INJ 20 MG/ML VIAL 10 MG IV (19:03)
--- NOTE | 2024-06-27 19:16 | PC.NURSE ---
called regarding B/P .Will order med and cancelled discharge.will let pt.and family about the order.
--- NOTE | 2024-06-27 20:55 | XR_ITS ---
Examination: AP chest single view Technique one AP portable upright chest single view Exam date and time: June 27, [id number] hrs. Comparison June 26, 2024 Indications: Shortness of breath today. Findings: Mild enlargement cardiac contour Moderate vascular congestion No lobar pneumonia Prominent osteopenia Impression: Suspicious for early heart failure
[2024-06-27] MEDS: RINGERS LACTATED 500 ML 500 ML 999 ML IV (20:57)
--- NOTE | 2024-06-27 21:00 | PC.RT ---
Responded to Rapid response pt on RA spo2 89% hr 48, place on nasal cannula 4L spo2 improved to 95% EKG done Ashley DE GUZMAN remains at bedside.
--- NOTE | 2024-06-27 21:10 | PD.RESEVENT ---
Documentation for date of: 06/27/24 Event Note Event Note: Rapid response: Rapid time: 2046 Reason for rapid: Bradycardia and hypotension Rapid was called due to bradycardia and hypotension. Patient was eating broth all of a sudden became dizzy unable to see. At bedside patient seemed very lethargic difficult to arouse. Heart rate was in the 40s blood pressure was systolic in the 60s. Patient started responding to verbal command. Chart review was made. Med rec was done. BG was 198. Patient had hydralazine given approximately 2 hours before the rapid due to hypertension. No beta-blockers have been given during the day. EKG was done showed sinus bradycardia heart rate 50, NM interval was within normal limits. Chest x-ray was done, CBC, CMP and magnesium were ordered. 1 LR bolus was given, patient blood pressure increased to systolic in the 130s. Patient seen more responsive stating that she feels much better. - Patient's care was discussed with my attending physician, Dr. Edilberto Ramirez MD Internal Medicine PGY-3
[2024-06-27 21:30] LABS: Basophils # (Auto) 0.1 Thou/mm3 (0.0-0.2); Basophils % (Auto) 1 % (0-2.5); Eosinophils # (Auto) 0.1 Thou/mm3 (0.0-0.5); Eosinophils % (Auto) 1 % (0-10); Hematocrit 39.2 % (36.0-46.0); Hemoglobin 12.7 g/dL (12.0-16.0); Immature Granulocytes % (Auto) 0 % (0-0); Immature Granulocytes Auto 0.03 Thou/mm3 (0.00-0.00); Lymphocytes % (Auto) 47 % (10-50); Mean Corpuscular HGB Conc 32.4 g/dl (31.0-37.0); Mean Corpuscular Volume 74 fL (80-100); Monocytes % (Auto) 10 % (0-12); Neutrophils # (Auto) 4.4 Thou/mm3 (1.8-7.7); Neutrophils % (Auto) 41 % (37-80); Nucleated Red Blood Cell % 0 /100 WBC (0); Platelet Count 267 Thou/mm3 (140-440); RDW Standard Deviation 40.6 fL (36.4-46.3); White Blood Count 10.6 Thou/mm3 (3.6-11.0)
[2024-06-27 21:49] LABS: Alanine Aminotransferase 9 U/L (10-49); Albumin, Serum 3.9 gm/dL (3.4-4.8); Albumin/Globulin Ratio 1.4 (1.2-2.2); Alkaline Phosphatase 92 U/L (46-116); Anion Gap 7 (7-16); Aspartate Amino Transferase 24 U/L (0-34); BUN/Creatinine Ratio 16 Ratio (12-20); Bilirubin,Total 0.7 mg/dL (0.3-1.2); Blood Urea Nitrogen 13 mg/dL (9-23); Calcium 9.7 mg/dL (8.3-10.6); Calcium (Corrected) 9.8 mg/dL (8.5-10.1); Carbon Dioxide 26.4 mMol/L (20.0-31.0); Chloride 105 mMol/L (98-107); Creatinine (Component) 0.8 mg/dL (0.6-1.3); Estimated Creatinine Clearance 54.3 mL/min (>60); Globulin 2.7 gm/dL (2.3-3.5); Glucose 165 mg/dL (74-106); Magnesium 2.1 mg/dL (1.6-2.6); Osmolality,Calculated 279 (275-295); Potassium 3.6 mMol/L (3.4-5.1); Sodium 138 mMol/L (136-145); Total Protein 6.6 gm/dL (5.7-8.2); Troponin I < 0.020 ng/mL (0.0-0.045); eGFR > 60 See Note
[2024-06-27] MEDS: INSULIN GLARGINE (Lantus) 5 UNIT/0.05 ML (PER 5 UNITS) 15 UNIT SC (21:52)
[2024-06-28] VITALS (17 sets, daily range): BP systolic 149–196; BP diastolic 63–81; PULSE 54–73; RESP 12–98; TEMP 35.9–36.5; O2SAT 93–96; BMI 20.8
--- NOTE | 2024-06-28 01:45 | ESPR_ITS ---
RE: PIOTR ROY : 1945 DATE OF SERVICE: 06/27/2024 SUBJECTIVE: The patient is a 79-year-old lady, who was admitted to the hospital with afib and RVR, chest pain only during episodes of afib, RVR. Now, chest pain resolved completely, not having any shortness of breath or chest pain. She is back in telemetry now. No other episodes today. OBJECTIVE: Vital Signs: Her examination shows her heart rate is normal at 60, blood pressure is slightly elevated, report recorded at 200/100. She is normally hypertensive, taking medications. We will start her on losartan, which can be increased. HEENT: Unremarkable. Neck: Supple. No JVD. Lungs: Decreased breath sounds with no rales or rhonchi. Heart: Heart sounds regular. No gallops. Abdomen: Thin and soft. Extremities: No edema. IMPRESSION: 1. Atrial fibrillation, rapid ventricular response, resolved. 2. Hypertension. RECOMMENDATIONS: Continue medical management including losartan dosage 100 mg daily and also, the patient should be given Eliquis since she has a high CHADS-VASC score. The patient can be discharged to home in stable condition if the patient remains stable. I will see her for followup as an outpatient. DT: 23:14:15 TT: 01:42:00 Ref: [id number] - TID: [id number] MTDD
[2024-06-28 05:40] LABS: Basophils # (Auto) 0.1 Thou/mm3 (0.0-0.2); Basophils % (Auto) 1 % (0-2.5); Eosinophils # (Auto) 0.1 Thou/mm3 (0.0-0.5); Eosinophils % (Auto) 1 % (0-10); Hematocrit 38.3 % (36.0-46.0); Hemoglobin 12.4 g/dL (12.0-16.0); Immature Granulocytes % (Auto) 0 % (0-0); Immature Granulocytes Auto 0.02 Thou/mm3 (0.00-0.00); Lymphocytes # (Auto) 2.3 Thou/mm3 (1.0-4.8); Lymphocytes % (Auto) 29 % (10-50); Mean Corpuscular HGB Conc 32.4 g/dl (31.0-37.0); Mean Corpuscular Hemoglobin 23.8 pg (25.0-35.0); Mean Corpuscular Volume 74 fL (80-100); Monocytes # (Auto) 0.9 Thou/mm3 (0.0-0.8); Monocytes % (Auto) 11 % (0-12); Neutrophils # (Auto) 4.6 Thou/mm3 (1.8-7.7); Neutrophils % (Auto) 57 % (37-80); Nucleated Red Blood Cell % 0 /100 WBC (0); Platelet Count 285 Thou/mm3 (140-440); RDW Standard Deviation 39.6 fL (36.4-46.3); Red Blood Count 5.21 Miln/mm3 (4.00-5.20); White Blood Count 8.1 Thou/mm3 (3.6-11.0)
[2024-06-28 06:38] LABS: Anion Gap 8 (7-16); BUN/Creatinine Ratio 19 Ratio (12-20); Blood Urea Nitrogen 13 mg/dL (9-23); Carbon Dioxide 26.2 mMol/L (20.0-31.0); Chloride 105 mMol/L (98-107); Creatinine (Component) 0.7 mg/dL (0.6-1.3); Glucose 145 mg/dL (74-106); Osmolality,Calculated 280 (275-295); Phosphorous 4.2 mg/dL (2.4-5.1); Potassium 3.6 mMol/L (3.4-5.1); Sodium 139 mMol/L (136-145); eGFR > 60 See Note
[2024-06-28] MEDS: INSULIN LISPRO (AdmeLOG) 1 UNIT/0.01 ML UNIT SC ×3 (07:38→20:49)
[2024-06-28] MEDS: LOSARTAN POTASSIUM 25 MG TABLET 100 MG PO (09:42)
[2024-06-28] MEDS: PANTOPRAZOLE 40 MG TABLET PO (09:43)
[2024-06-28] MEDS: APIXABAN 2.5 MG TABLET 5 MG PO ×2 (09:43→20:48)
[2024-06-28] MEDS: amLODIPine BESYLATE 5 MG TABLET PO ×2 (11:18→12:24)
--- NOTE | 2024-06-28 11:44 | PD.RESDS ---
Planned Discharge Date 06/28/24 DS: Providers Provider Date of admission: 06/26/24 15:02 Primary care physician: Uriel Robert Admitting Provider: Archana Varghese DO Attending Provider on Admission: Archana Varghese DO Consults: 06/26/24 15:13 Referral Registered Dietitian Routine Comment: 06/26/24 18:00 Consult to Cardiology Routine Comment: Consulting Provider: Aman Crain Instructions: new onset of Atrial fibrillation Attending Provider on DC: Ruddy Palma MD Discharging Provider: Ruddy Palma MD Hospital Course Hospital Course Hospital course: Rosie Fishman is a 79-year-old female with a past medical history of hypertension, hypercholesterolemia, and insulin-dependent type 2 diabetes mellitus who was admitted for new onset atrial fibrillation. No acute overnight events, and patient seen and examined at bedside. Continues to endorse jaw discomfort as well as chest discomfort and palpitations around 5 AM. Per cardiology, patient should remain overnight and if troponin and echo are normal then patient can be discharged for further evaluation with stress test and noninvasive workup for CAD as outpatient. Patient and family expressed concerns regarding trial discomfort and discussed that given history of oral procedure in the past, this may be due to complication or may require further evaluation by ENT as outpatient. Time Spent with Patient Time attestation: Total time spent providing and/or coordinating discharge services: Exam Vital Signs Temp Pulse Resp BP Pulse Ox O2 Del Method 96.9 F 64 15 179/79 H 96 Room Air 06/28/24 08:00 06/28/24 11:18 06/28/24 08:25 06/28/24 11:18 06/28/24 08:00 06/28/24 08:00 Discharge Plan Plan Patient Disposition: HOME (Self Care) Patient condition on transfer: Stable Care Plan Goals: Take Eliquis 5 mg twice a day for your atrial fibrillation Continue all other home medications Take irbesartan 300 mg every day for high blood pressure. Hold if your the top number of your blood pressure (SBP) is less than 120. Follow-up with implement mechanic Dr. Crain in 1 week Follow up with your primary care physician within 1 week of discharge. If you do not have a primary care physician, please follow up with the [facility] Residents clinic ([phone]) Prescriptions/Referrals Prescriptions/Med Rec: New (DME) FreeStyle Rivka 2 Sensor Kit See Rx Instructions .Route Qty: 1 0RF Rx Instructions: As directed (DME) Blood Pressure Cuff Misc See Rx Instructions .Route Qty: 1 0RF Rx Instructions: As directed (DME) FreeStyle [place]ka 2 Alpha Misc See Rx Instructions .Route Qty: 1 0RF Rx Instructions: As directed apixaban 5 mg tablet 5 mg PO BID 30 Days Qty: 60 0RF irbesartan 300 mg tablet 300 mg PO QDAY Qty: 30 0RF metformin 500 mg tablet extended release 24 hr 500 mg PO QDAY Qty: 30 0RF aspirin 81 mg capsule 81 mg PO QDAY Qty: 30 0RF Continued insulin glargine [Lantus U-100 Insulin] 100 unit/mL Solution 15 unit SUBCUT QPM Referrals: Uriel Iqbal [Primary Care Provider] - Aman Crain MD [Physician] - Patient/Caregiver Discharge Instructions Education Materials: Your Heart's Electrical System, AFL/Afib, Understanding Atrial Fibrillation, ED Atrial Fibrillation Print Language: Hong [place]er Stand Alone Forms: [facility]enna Award Info., Patient Portal Info Letter Discharge Order Discharge Orders: Discharge (Routine); Ordered 06/28/24 Ordered By: Marlin Luevano
[2024-06-28] MEDS: hydrALAZINE HCL 10 MG TABLET PO ×2 (13:34→20:48)
--- NOTE | 2024-06-28 13:50 | ESPR_ITS ---
<Statement entered by Marlin Luevano MD - 06/28/24 14:45> I discussed with and supervised my co-resident involved in the care of this patient. I agree with the assessment and plan as documented above. Patient had RR overnight due to hypotension after receiving hydralazine. Blood pressure improved and then became elevated. Reviewed patient's home meds at bedside; takes metformin 500mg Qday, aspirin 100mg Qday, irbesartan 150mg Qday. Will increase irbesartan dose to 300mg Qday on discharge as equivalent to inpatient losartan dose, and add amlodipine and oral hydralazine for better blood pressure control. Anticipate discharge tomorrow when blood pressure control improves. Marlin Luevano MD PGY-3 Documentation for date of: 06/28/24 Subjective Subjective Interval history: Rosie Fishman is a 79-year-old female with a past medical history of hypertension, hypercholesterolemia, and insulin-dependent type 2 diabetes mellitus who was admitted for new onset atrial fibrillation. Yesterday evening patient blood pressure noted to be 201/114 and was given 10 mg IV hydralazine. At approximately 8:47 PM a rapid response was called due to bradycardia and hypotension, with heart rate in 40s and SBP in the 60s respectively. She became lethargic and difficult to arouse but was responding to verbal command. 1 L of LR was given and SBP increased to 130s. Patient was to be discharged throughout day BP remained elevated. Notified for BP of 179/79 and she was given amlodipine 5 mg x 2, but remained elevated at 196/79. Scheduled hydralazine 10 mg p.o. twice daily was started and discharged was canceled for further BP management. Exam Vital Signs Temp Pulse Resp BP Pulse Ox O2 Del Method 97.0 F 66 23 H 185/80 H 95 Room Air 06/28/24 12:00 06/28/24 13:34 06/28/24 12:00 06/28/24 13:34 06/28/24 12:00 06/28/24 12:00 Narrative Exam General: AOx3, no acute distress, able to speak full sentences HEENT: NC/AT, mucous membranes moist, bilateral sclera anicteric Cardiovascular: regular rate and rhythm, S1/S2 present, no murmurs appreciated Pulmonary: clear to auscultation bilaterally, no rales/rhonchi/wheezes Abdominal: soft, non-tender, non-distended, no rebound/guarding, normal bowel sounds present Musculoskeletal: normal ROM, no peripheral edema Skin: warm and dry, intact, no rashes Neuro: CN II-XII intact, no focal deficits Objective Labs 06/28/24 05:13 06/28/24 05:13 Labs: Laboratory Results - last 24 hr 06/27/24 06/28/24 21:09 05:13 WBC 10.6 8.1 RBC 5.30 H 5.21 H Hgb 12.7 12.4 Hct 39.2 38.3 MCV 74 L 74 L MCH 24.0 L 23.8 L MCHC 32.4 32.4 RDW Std Deviation 40.6 39.6 Plt Count 267 285 Neut % (Auto) 41 57 Lymph % (Auto) 47 29 [place] % (Auto) 10 11 Eos % (Auto) 1 1 Baso % (Auto) 1 1 Neut # (Auto) 4.4 4.6 Lymph # (Auto) 5.0 H 2.3 [place] # (Auto) 1.0 H 0.9 H Eos # (Auto) 0.1 0.1 Baso # (Auto) 0.1 0.1 Immature Gran # (Auto) 0.03 H 0.02 H Absolute Nucleated RBC 0.00 0.00 Immature Gran % 0 0 Nucleated RBC % 0 0 Sodium 138 139 Potassium 3.6 3.6 Chloride 105 105 Carbon Dioxide 26.4 26.2 Anion Gap 7 8 BUN 13 13 Creatinine 0.8 0.7 Estim Creat Clear Calc 54.3 L 62.0 eGFR > 60 > 60 BUN/Creatinine Ratio 16 19 Glucose 165 H D 145 H Calculated Osmolality 279 280 Calcium 9.7 9.0 Corrected Calcium 9.8 Phosphorus 4.2 Magnesium 2.1 2.0 Total Bilirubin 0.7 D AST 24 ALT 9 L Alkaline Phosphatase 92 D Troponin I < 0.020 Total Protein 6.6 Albumin 3.9 D Globulin 2.7 Albumin/Globulin Ratio 1.4 Quality Measures Quality Measures none Advance care planning discussed with:: patient Assessment & Plan Assessment Current Active Medications: Generic Name Dose Route Start Last Admin Trade Name Freq PRN Reason Stop Dose Admin Acetaminophen 650 mg 06/26/24 15:04 06/27/24 07:14 Acetaminophen 325 Mg Tablet PO 07/26/24 15:03 650 mg Q6H PRN Administration Mild Pain 1-3 or Fever > 100.4 Hydrocodone Bitart/Acetaminophen 1 tab 06/26/24 15:04 Hydrocodone/Apap 5/325 Tablet PO 07/01/24 15:03 Q4HR PRN PAIN SCALE 4-6 (Moderate Apixaban 5 mg 06/26/24 21:00 06/28/24 09:43 Apixaban 2.5 Mg Tablet PO 07/26/24 20:59 5 mg BID SANTINO Administration Dextrose 25 ml 06/26/24 15:08 Dextrose 50%-Water Inj 50 Ml Syringe IV 07/26/24 15:07 Q15MIN PRN BG 50-70 responsive npo pt Dextrose 50 ml 06/26/24 15:08 Dextrose 50%-Water Inj 50 Ml Syringe IV 07/26/24 15:07 Q15MIN PRN BG <50 OR BG <70 & pt unresponsive Glucagon 1 mg 06/26/24 15:08 Glucagon Inj 1 Mg Vial IM Q15MIN PRN BG <70, and no IV access Hydralazine HCl 10 mg 06/28/24 13:15 06/28/24 13:34 Hydralazine Hcl 10 Mg Tablet PO 07/28/24 13:14 10 mg BID SANTINO Administration Insulin Glargine 15 unit 06/26/24 21:00 06/27/24 21:52 Insulin Glargine (Lantus) 5 Unit/0.05 Ml (Per 5 Units) SC 07/26/24 20:59 15 unit HS SANTINO Administration Insulin Human Lispro 0 unit 06/26/24 17:00 06/28/24 11:20 Insulin Lispro (Admelog) 1 Unit/0.01 Ml Unit SC 07/26/24 16:59 Not Given ACHS [facility] Protocol Losartan Potassium 100 mg 06/28/24 09:00 06/28/24 09:42 Losartan Potassium 25 Mg Tablet PO 07/28/24 08:59 100 mg QDAY SANTINO Administration Pantoprazole Sodium 40 mg 06/28/24 09:30 06/28/24 09:43 Pantoprazole 40 Mg Tablet PO 07/28/24 09:29 40 mg QDAY SANTINO Administration Sennosides 1 tab 06/26/24 15:04 Senna Tablet PO 07/26/24 15:03 QDAY PRN constipation Protocol Marky Fishman is a 79-year-old female with a past medical history of hypertension, hypercholesterolemia, and insulin-dependent type 2 diabetes mellitus who was admitted for new onset atrial fibrillation. #Paroxysmal A-fib RVR, resolved Patient does not have a PCP and receives her medications from physician in [place] that she sees infrequently. [id number] score 5. ? Eliquis 5 mg p.o. twice daily ? Keep K > 4 and magnesium > 2 ? Cardiology consulted, appreciate recommendations ? Recommend further evaluation with stress test and noninvasive workup for CAD as outpatient ? Recommend continuing irbesartan for hypertension ? Pending echo #Hypertension ? Losartan 100 mg daily ? Hydralazine 10 mg p.o. twice daily #Type 2 diabetes mellitus, insulin-dependent A1c 8.1% on 06/27 ? Glargine 15 units at bedtime ? [facility] Hospital management: Disposition: pending echo read Fluids: not indicated Diet: carb consistent low Lines: peripheral DVT prophylaxis: eliquis 5 mg BID GI prophylaxis: pantoprazole CODE STATUS: full code ----- Plan discussed with attending physician Dr. Varghese and senior resident physician Dr. Bassem Palma MD PGY-1 Internal Medicine Attending Provider Attestation/Addendum I, Archana Varghese, DO, attest that I was physically present for the mcgrath portions of the service and evaluated the patient with the resident and I reviewed and discussed the case with the resident and agree with the resident's findings and plans of care as documented above Patient seen and evaluated this AM. She states she is feeling well. However, BP continues to be uncontrolled. Will switch home irbesartan to losartan and add hydralazine. Will continue to uptitrate hydralazine as tolerated.
--- NOTE | 2024-06-28 20:31 | ESPR_ITS ---
RE: PIOTR ROY : 1945 DATE OF SERVICE: 06/28/2024 SUBJECTIVE: The patient is a 79-year-old lady __ with paroxysmal atrial fibrillation, rapid heart rate, converted to sinus rhythm; however, blood pressure is quite high acquiring multiple medications. She is already on losartan 100 mg daily, amlodipine 10 mg daily was added and hydralazine was given. Still blood pressure running high. She feels okay, does not have any headache, dizziness, or chest pain. OBJECTIVE: General: aler awake e. Vital Signs: Her blood pressure now has come down slightly. Last blood pressure being 170/80 pulse 73 Neck: Supple. No JVD. Lungs: Clear. Heart: Heart sounds regular, no gallop. Abdomen: Thin and soft. Extremities: No edema. DIAGNOSTIC DATA: Echocardiogram showed normal left ventricular function. Ejection fraction is 65%, mild dilated left atrium, mild mitral regurgitation and mild aortic regurgitation. ASSESSMENT: 1. Paroxysmal atrial fibrillation. 2. Severe hypertension. 3. Mild aortic and mitral regurgitation RECOMMENDATIONS: 1. Continue antihypertensive drug therapy. 2. Once the blood pressure is reasonably controlled, discharge the patient home. 3. We will do cardiac workup as an outpatient following discharge and may require stress test as well. DT: 17:50:16 TT: 20:21:00 Ref: [id number] - TID: [id number] MTDD
[2024-06-28] MEDS: INSULIN GLARGINE (Lantus) 5 UNIT/0.05 ML (PER 5 UNITS) 15 UNIT SC (20:49)
[2024-06-28] MEDS: PANTOPRAZOLE INJ 40 MG VIAL IVP (21:15)
[2024-06-29] VITALS (8 sets, daily range): BP systolic 139–146; BP diastolic 63–74; PULSE 59–76; RESP 17–92; TEMP 36.1–36.3; O2SAT 95–97; BMI 20.8
[2024-06-29 05:01] LABS: Basophils # (Auto) 0.1 Thou/mm3 (0.0-0.2); Basophils % (Auto) 1 % (0-2.5); Eosinophils # (Auto) 0.1 Thou/mm3 (0.0-0.5); Eosinophils % (Auto) 1 % (0-10); Hematocrit 40.6 % (36.0-46.0); Hemoglobin 13.2 g/dL (12.0-16.0); Immature Granulocytes % (Auto) 0 % (0-0); Immature Granulocytes Auto 0.03 Thou/mm3 (0.00-0.00); Lymphocytes # (Auto) 2.4 Thou/mm3 (1.0-4.8); Lymphocytes % (Auto) 29 % (10-50); Mean Corpuscular HGB Conc 32.5 g/dl (31.0-37.0); Mean Corpuscular Hemoglobin 23.7 pg (25.0-35.0); Mean Corpuscular Volume 73 fL (80-100); Monocytes # (Auto) 0.8 Thou/mm3 (0.0-0.8); Monocytes % (Auto) 10 % (0-12); Neutrophils % (Auto) 59 % (37-80); Nucleated Red Blood Cell % 0 /100 WBC (0); Platelet Count 311 Thou/mm3 (140-440); RDW Standard Deviation 38.9 fL (36.4-46.3); Red Blood Count 5.56 Miln/mm3 (4.00-5.20); White Blood Count 8.5 Thou/mm3 (3.6-11.0)
[2024-06-29 05:36] LABS: Anion Gap 9 (7-16); BUN/Creatinine Ratio 25 Ratio (12-20); Blood Urea Nitrogen 15 mg/dL (9-23); Calcium 9.2 mg/dL (8.3-10.6); Carbon Dioxide 25.7 mMol/L (20.0-31.0); Chloride 105 mMol/L (98-107); Creatinine (Component) 0.6 mg/dL (0.6-1.3); Estimated Creatinine Clearance 72.3 mL/min (>60); Glucose 88 mg/dL (74-106); Osmolality,Calculated 279 (275-295); Phosphorous 4.8 mg/dL (2.4-5.1); Potassium 3.6 mMol/L (3.4-5.1); Sodium 140 mMol/L (136-145); eGFR > 60 See Note
[2024-06-29] MEDS: POTASSIUM CHLORIDE 10% 20 MEQ/15 ML UDC 40 MEQ PO (07:46)
[2024-06-29] MEDS: HYDROcodone/APAP 5/325 TABLET 1 TAB PO (07:47)
[2024-06-29] MEDS: PANTOPRAZOLE 40 MG TABLET PO (09:17)
[2024-06-29] MEDS: amLODIPine BESYLATE 5 MG TABLET 10 MG PO (09:20)
[2024-06-29] MEDS: hydrALAZINE HCL 10 MG TABLET PO (09:22)
[2024-06-29] MEDS: APIXABAN 2.5 MG TABLET 5 MG PO (09:22)
[2024-06-29] MEDS: LOSARTAN POTASSIUM 25 MG TABLET 100 MG PO (09:24)
[2024-06-29] MEDS: POLYETHYLENE GLYCOL 17 GM PACKET PO (09:24)
--- NOTE | 2024-06-29 10:05 | PC.SS ---
Forensic Specialist (MARGOT) Abi met with patient and her at bedside. SW discussed discharge plan. Patient reported that she will return home, no transportation is needed. SW provided information for the [facility] for patient to follow up for primary care.
--- NOTE | 2024-06-29 10:38 | ESDS_ITS ---
<Statement entered by Santo Gan MD - 06/30/24 06:25> I attest that I was physically present for the evaluation, physical examination, lab and imaging review of the patient with the residents. I discussed the case with the residents and agree with the findings and plans of care as documented above. Patient continues to be in sinus rhythm with stable blood pressure. Patient will be discharged home on Eliquis, Irbesartan, Amlodipine and Hydralaxine. Recommended follow up with Cardiology and PCP in 1 week. Santo Gan MD <Statement entered by Noe Muro MD - 06/29/24 16:27> Patient being discharged home. Patient is to follow-up with Dr. Crain within 1 week of discharge. Patient to continue hydralazine, amlodipine, and irbesartan. Patient will also continue Eliquis for paroxysmal A-fib. Patient encouraged to follow-up with PCP or [facility] as she does not have PCP. Case discussed with team. Noe Muro MD PGY3 Planned Discharge Date 06/29/24 DS: Providers Provider Date of admission: 06/26/24 15:02 Primary care physician: Uriel Robert Admitting Provider: Archana Varghese DO Attending Provider on Admission: Archana Varghese DO Consults: 06/26/24 15:13 Referral Registered Dietitian Routine Comment: 06/26/24 18:00 Consult to Cardiology Routine Comment: Consulting Provider: Aman Crain Instructions: new onset of Atrial fibrillation Attending Provider on DC: Ruddy Palma MD Discharging Provider: Ruddy Palma MD DS: Diagnosis Problem List Completed Was Problem List Reviewed/Reconciled?: Yes Hospital Course Hospital Course Hospital course: Rosie Fishman is a 79-year-old female with a past medical history of hypertension, hypercholesterolemia, and insulin-dependent type 2 diabetes mellitus who was admitted for new onset atrial fibrillation. Originally presented with chest pain that radiated to her jaw with associated palpitations. In ED, troponins were negative and EKG showed atrial fibrillation and received diltiazem push but experienced 1 second pause and subsequent sinus bradycardia. Throughout her hospital stay, patient did not experience any more palpitations but did endorse chest discomfort and jaw pain. Repeat troponin negative and EKG showed sinus bradycardia. Of note, patient had small cysts or tumor removed from her gumline in [place] and was told that it was benign and recently had dentures added. She did have a rapid response on 06/27 for SBP in the 60s as she was given IV hydralazine for elevated blood pressure. She responded to 1 L LR afterwards with SBP 130s. The following day patient's systolic blood pressure ranged 200s, so was given amlodipine 5 mg x 2 and started on hydralazine 10 mg p.o. twice daily and responded well afterwards and was clear for discharge. Diagnoses during admission: #Paroxysmal A-fib RVR, resolved #Hypertension #Type 2 diabetes mellitus, insulin-dependent Discharge instructions: - Take Eliquis 5 mg twice a day for your atrial fibrillation - Continue all other home medications - Take irbesartan 300 mg and amlodipine 10 mg every day and hydralazine 10 mg twice per day for high blood pressure - Hold if your the top number of your blood pressure (SBP) is less than 120 - Follow-up with tar pot worker Dr. Crain in 1 week - Follow up with your primary care physician within 1 week of discharge - If you do not have a primary care physician, please follow up with the [facility] Residents clinic ([phone]) ----- Plan discussed with attending physician Dr. Gan and senior resident physician Dr. Bhaskar Palma MD PGY-1 Internal Medicine Time Spent with Patient Time attestation: Total time spent providing and/or coordinating discharge services: Exam Vital Signs Temp Pulse Resp BP Pulse Ox O2 Del Method 97.0 F 64 17 139/63 H 95 Room Air 06/29/24 08:00 06/29/24 09:24 06/29/24 08:00 06/29/24 09:24 06/29/24 08:00 06/29/24 08:00 Narrative Exam General: AOx3, no acute distress, able to speak full sentences HEENT: NC/AT, mucous membranes moist, bilateral sclera anicteric Cardiovascular: regular rate and rhythm, S1/S2 present, no murmurs appreciated Pulmonary: clear to auscultation bilaterally, no rales/rhonchi/wheezes Abdominal: soft, non-tender, non-distended, no rebound/guarding, normal bowel sounds present Musculoskeletal: normal ROM, no peripheral edema Skin: warm and dry, intact, no rashes Neuro: CN II-XII intact, no focal deficits Discharge Plan Plan Patient Disposition: HOME (Self Care) Patient condition on transfer: Stable Care Plan Goals: - Take Eliquis 5 mg twice a day for your atrial fibrillation - Continue all other home medications - Take irbesartan 300 mg and amlodipine 10mg every day and hydralazine 10 mg twice per day for high blood pressure - Hold if your the top number of your blood pressure (SBP) is less than 120 - Follow-up with tar pot worker Dr. Crain in 1 week - Follow up with your primary care physician within 1 week of discharge - If you do not have a primary care physician, please follow up with the [facility] Residents clinic ([phone]) Prescriptions/Referrals Prescriptions/Med Rec: New (DME) FreeStyle Rivka 2 Sensor Kit See Rx Instructions .Route Qty: 1 0RF Rx Instructions: As directed (DME) [facility] See Rx Instructions .Route Qty: 1 0RF Rx Instructions: As directed (DME) FreeStyle Rivka 2 [facility] See Rx Instructions .Route Qty: 1 0RF Rx Instructions: As directed apixaban 5 mg tablet 5 mg PO BID 30 Days Qty: 60 0RF irbesartan 300 mg tablet 300 mg PO QDAY Qty: 30 0RF metformin 500 mg tablet extended release 24 hr 500 mg PO QDAY Qty: 30 0RF aspirin 81 mg capsule 81 mg PO QDAY Qty: 30 0RF amlodipine 10 mg tablet 10 mg PO QDAY Qty: 30 0RF Rx Instructions: Hold if SBP < 120 hydralazine 10 mg Tablet 10 mg PO BID 30 Days Qty: 60 0RF Rx Instructions: HOLD IF SBP < 120 Discontinued insulin glargine [Lantus U-100 Insulin] 100 unit/mL Solution 15 unit SUBCUT QPM Referrals: Uriel Iqbal [Primary Care Provider] - Aman Crain MD [Physician] - Patient/Caregiver Discharge Instructions Discharge Activity: activity as tolerated Education Materials: Your Heart's Electrical System, AFL/Afib, Understanding Atrial Fibrillation Print Language: Yemeni Stand Alone Forms: [facility] Award Info., Patient Portal Info Letter Discharge Order Discharge Orders: Discharge (Routine); Ordered 06/29/24 Ordered By: Marlin Luevano Quality Discharge Quality Measures VTE prophylaxis
== END 2024-06-29 10:55 | disposition home or self-care (01) | DRG 310 ==
LOC: SERX 14:58 → SERHOLD 15:36 → S2NX 20:49
PROVIDERS: Registered Nurse General Practice; Student in an Organized Health Care Education/Training Program; Admitting Provider Internal Medicine; Emergency Provider Emergency Medicine; PCP Physician Assistant; Visit Provider Internal Medicine
DX: I48.0 Paroxysmal atrial fibrillation (principal); I48.92 Unspecified atrial flutter; I10 Essential (primary) hypertension; E78.00 Pure hypercholesterolemia, unspecified; E11.9 Type 2 diabetes mellitus without complications; I08.0 Rheumatic disorders of both mitral and aortic valves; I95.9 Hypotension, unspecified; R00.1 Bradycardia, unspecified; Z90.49 Acquired absence of other specified parts of digestive tract; Z90.710 Acquired absence of both cervix and uterus; Z79.82 Long term (current) use of aspirin; Z79.01 Long term (current) use of anticoagulants; Z79.84 Long term (current) use of oral hypoglycemic drugs; Z79.899 Other long term (current) drug therapy
CPT/HCPCS: 36415; 71045; 80048; 80053; 80061; 81001; 83036; 83735; 83880; 84100; 84443; 84484; 85025; 85610; 85730; 93005; 93306; 96372; 96374; 99285; J0360; J1643; J1815; J2470; J3490; J7030; J7120; A9270; J1644

== ENCOUNTER → 2024-07-07 | Outpatient (CLI) | payer MEDICARE, MEDICAID, SELFPAY ==
--- NOTE | 2024-07-07 10:56 | XR_ITS ---
Examination: Facial bones 4 views TECHNIQUE: Ranjeet Hernandez lateral submentovertex facial series 4 views Exam date and time: July 07, 2024 and 49 hours INDICATIONS: Anterior jaw pain beginning one year ago. FINDINGS: Benign hyperostosis frontalis internus Mild chronic pansinusitis No cortical bone destruction involving the mandible or maxilla No fracture IMPRESSION: No cortical bone destruction or mandibular fracture Consider CT scan maxilla mandible follow-up without contrast as clinically warranted
== END | disposition home or self-care (01) ==
PROVIDERS: PCP Student in an Organized Health Care Education/Training Program; Referring Provider Student in an Organized Health Care Education/Training Program; Visit Provider Student in an Organized Health Care Education/Training Program
DX: M27.8 Other specified diseases of jaws (principal)
CPT/HCPCS: 70150